=== PATIENT | female | born 1970 | race African-American/Black ===

== ENCOUNTER 2017-09-01 12:31 | Emergency (ER) | payer MEDICAID ==
[~2017-09-01] VITALS: Ht 167.6 cm; Wt 70.0 kg
[2017-09-01] MEDS ORDERED: PHEN100C4 PO (12:36)
[2017-09-01] MEDS ORDERED: KEPP500 PO (12:36)
[2017-09-01] MEDS ORDERED: LORAZEPAM 2MG/ML CPJ IV PRN (13:00)
[2017-09-01 13:28] LABS: BASOPHILS % 0.3 % (0.0-2.0); EOSINOPHILS % 3.1 % (0.0-5.0); HEMATOCRIT. 42.3 % (36.0-48.0); MEAN CORPUSCULAR HEMOGLOBIN 27.6 pg (28.0-32.0); MEAN CORPUSCULAR VOLUME 83.2 fL (81.0-99.0); MEAN PLATELET VOLUME 7.9 fl (7.4-10.4); NEUTROPHILS % 61.6 % (40.0-76.0); PLATELET 211 x1000/uL (130-400); RED BLOOD CELL COUNT 5.08 mill/uL (4.2-5.4); RED CELL DISTRIBUTION WIDTH 12.6 % (11.6-14.6)
[2017-09-01 13:33] LABS: CHLORIDE 110 mEq/L (98-107)
[2017-09-01 13:36] LABS: ETHANOL BLOOD < 10 mg/dL
[2017-09-01] MEDS ORDERED: PHENYTOIN SODIUM 500 MG in SODIUM CHLORIDE 0.9% 50 ML IV ONE (15:15)
[2017-09-01] MEDS ORDERED: IBUPROFEN 400MG TABLET PO ONE (17:45)
[2017-09-01] MEDS ORDERED: ACETAMINOPHEN 325MG TABLET PO ONE (17:45)
[2017-09-01 17:55] VITALS: BP 149/86
== END 2017-09-01 17:58 | disposition home or self-care (01) ==
LOC: ER 12:48
DX: G40.409 Other generalized epilepsy and epileptic syndromes, not intractable, without status epilepticus (principal); R89.2 Abnormal level of other drugs, medicaments and biological substances in specimens from other organs, systems and tissues
CPT/HCPCS: 36415; 80053; 80185; 85025; 96365; 99284; G0482; J1165